=== PATIENT | female | born 1995 | race African-American/Black ===

== ENCOUNTER 2017-02-23 20:46 | Emergency (ER) | payer SELFPAY ==
[~2017-02-23] VITALS: Ht 162.6 cm; Wt 54.4 kg
--- NOTE | 2017-02-23 20:48 | NUR ---
PT BIBRA TO ER BED 11. PER REPORT, PT CALLED 911 STATING THAT SHE IS HEARING VOICES AND THAT SOMEBODY IS OUT TO GET HER. PT DENIES SI/HI. PLACED ON SI PRECAUTION. VSS. AWAITING MD PINTO.
--- NOTE | 2017-02-23 22:16 | NUR ---
DR OSULLIVAN AT BEDSIDE FOR EVAL.
--- NOTE | 2017-02-23 22:20 | NUR ---
PT STATES UNABLE TO PROVIDE URINE SAMPLE AT THIS TIME. WILL TRY AGAIN LATER.
--- NOTE | 2017-02-23 22:30 | NUR ---
[employer] DRIVER AT BEDSIDE FOR BLOOD DRAW.
[2017-02-23 22:36] LABS: BASOPHILS # (AUTO) 0.1 /CMM (0.0-0.2); BASOPHILS % (AUTO) 0.9 % (0.0-2.0); EOSINOPHILS # (AUTO) 0.1 /CMM (0.0-0.7); EOSINOPHILS % (AUTO) 1.5 % (0.0-6.0); HEMATOCRIT 43 % (33-45); HEMOGLOBIN 13.9 g/dL (11.5-14.8); LYMPHOCYTES # (AUTO) 3.3 /CMM (0.8-4.8); LYMPHOCYTES % (AUTO) 38.8 % (20.0-44.0); MEAN CORPUSCULAR HEMOGLOBIN 27 PG (26.0-33.0); MEAN CORPUSCULAR HGB CONC 33 g/dl (31.0-36.0); MEAN CORPUSCULAR VOLUME 84 fL (82-100); MONOCYTES # (AUTO) 0.7 /CMM (0.1-1.30); MONOCYTES % (AUTO) 8.3 % (2.0-12.0); NEUTROPHILS # (AUTO) 4.3 /CMM (1.8-8.9); NEUTROPHILS % (AUTO) 50.5 % (43.0-81.0); PLATELET COUNT (AUTO) 366 /CMM (150-450); RDW COEFFICIENT OF VARIATION 15.8 (11.5-15.0); RED BLOOD CELL COUNT(AUTO) 5.11 MIL/uL (4.0-5.2); WHITE BLOOD COUNT (AUTO) 8.5 K/uL (4.3-11.0)
[2017-02-23 23:01] LABS: CALCIUM, SERUM 9.9 mg/dL (8.5-10.1); CARBON DIOXIDE 28 mmol/L (21-32); CHLORIDE 103 mmol/L (98-107); CREATININE 0.8 mg/dL (0.6-1.3); GLUCOSE 91 mg/dL (74-106); SODIUM SERUM 139 mmol/L (136-145); UREA NITROGEN, BLOOD 8 mg/dL (7-18)
[2017-02-23 23:04] LABS: ALANINE AMINOTRANSFERASE 31 U/L (12-78); ALBUMIN 4.5 g/dL (3.4-5.0); ALCOHOL, BLOOD < 3 mg/dL (0-0); ALKALINE PHOSPHATASE 79 U/L (46-116); ASPARTATE AMINOTRANSFERASE 22 U/L (15-37); BILIRUBIN,TOTAL 0.2 mg/dL (0.2-1.0); TOTAL PROTEIN, SERUM 8.5 g/dL (6.4-8.2)
[2017-02-23 23:05] LABS: ACETAMINOPHEN 0 ug/ml (10-30)
--- NOTE | 2017-02-23 23:27 | NUR ---
REPORT TO CHARGE NURSE COURT FOR [place].
[2017-02-23 23:35] LABS: APPEARANCE,URINE CLEAR (CLEAR); BILIRUBIN,URINE NEGATIVE (NEGATIVE); BLOOD, URINE NEGATIVE Ery/uL (NEGATIVE); COLOR,URINE YELLOW (YELLOW); KETONES,URINE NEGATIVE (NEGATIVE); LEUKOCYTE ESTERASE ,URINE NEGATIVE (NEGATIVE); NITRITE, URINE NEGATIVE (NEGATIVE); PROTEIN,URINE NEGATIVE (NEGATIVE); UGLUCOSE NEGATIVE (NEGATIVE); UROBILINOGEN,URINE 0.2 EU/dL (0.2)
--- NOTE | 2017-02-24 00:05 | NUR ---
CALLED RUDDY FOR EVAL
--- NOTE | 2017-02-24 02:40 | NUR ---
CALLED RUDDY FOR EVAL; STATES SHE IS ON HER WAY
--- NOTE | 2017-02-24 03:33 | NUR ---
RUDDY IS AT BED SIDE FOR EVAL
[2017-02-24 05:53] VITALS: BP 118/70
== END 2017-02-24 05:53 | disposition home or self-care (01) ==
LOC: ER 20:47
DX: F20.0 Paranoid schizophrenia (principal); R44.0 Auditory hallucinations; F22 Delusional disorders
CPT/HCPCS: 36415; 80048-TC; 80076-TC; 80305; 81000-TC; 84702-TC; 85025-TC; A4606; G0480; L0172; Z7610